=== PATIENT | male | born 1945 | race Caucasian/White ===

== ENCOUNTER 2021-04-06 00:49 | Emergency (ER) | payer MEDICARE, OTHER ==
[~2021-04-06] VITALS: Ht 182.9 cm; Wt 89.4 kg
[2021-04-06] MEDS ORDERED: 0.9%NACL 1000ML 1,000 ML IV ONE (02:00)
[2021-04-06 02:39] LABS: BASOPHILS % (AUTO) 0.5 % (0.0-5.0); EOSINOPHILS % (AUTO) 0.3 % (0.0-8.0); LYMPHOCYTES % (AUTO) 9.1 % (21.0-51.0); MEAN CORPUSCULAR HEMOGLOBIN 31.9 pg (27.0-33.0); MEAN CORPUSCULAR VOLUME 93.8 fL (79-99); MONOCYTES % (AUTO) 10.8 % (3.0-13.0); NEUTROPHILS % (AUTO) 78.2 % (40.0-77.0); PLATELET COUNT (AUTO) 183 K/uL (130-400); RED CELL DISTRIBUTION WIDTH 13.3 % (11.0-15.5)
[2021-04-06 02:47] LABS: CREATININE 1.2 mg/dL (0.5-1.5); POTASSIUM 4.1 mmol/L (3.5-5.1)
[2021-04-06 03:22] VITALS: BP 115/64
[2021-04-06 03:29] LABS: APPEARANCE,URINE Clear (CLEAR); BILIRUBIN,URINE Negative (NEGATIVE); COLOR,URINE Yellow (YELLOW); GLUCOSE, URINE (UA) Negative (NEGATIVE); KETONES,URINE Negative (NEGATIVE); LEUKOCYTE ESTERASE ,URINE Negative (NEGATIVE); NITRATE,URINE Negative (NEGATIVE); OCCULT BLOOD,URINE Negative (NEGATIVE); PROTEIN,URINE Negative (NEGATIVE); UROBILINOGEN,URINE 0.2 mg/dL (0.2-1.0)
== END 2021-04-06 04:01 | disposition home or self-care (01) ==
LOC: EDH 00:49
DX: R33.9 Retention of urine, unspecified (principal); E86.1 Hypovolemia; Z87.442 Personal history of urinary calculi; Z88.0 Allergy status to penicillin
CPT/HCPCS: 36415; 51702; 80048; 81003; 85025; 87077; 87088; 87186